=== PATIENT | male | born 1965 | race Caucasian/White ===

== ENCOUNTER 2020-05-14 12:04 | Outpatient (CLI) | payer MEDICARE, SELFPAY ==
--- NOTE | 2020-05-14 12:11 | XR_ITS ---
WS: [id number] LEFT RIBS, MULTIPLE VIEWS HISTORY: RIB FRACTURE, LEFT RIB PAIN COMPARISON: 12/24/2017 Ribs: Plate and screw fixation of several contiguous lateral ribs in the LEFT thorax at the fourth, f ifth, sixth, seventh and eighth ribs. There are additional healed fractures posteriorly from the fift h through the 12th rib. These are healed. Additional nonfixated fractures involving the lateral secon d and third ribs which are also probably old. Lungs and mediastinum: Visualized lung is clear. No pneumothorax. XR/XR ribs LT 2V* [id number] IMPRESSION: Numerous posterior lateral LEFT rib fractures as described above. Some of these rib fractures are fixated with plate and screws. No acute fracture.
== END 2020-05-14 12:05 | disposition home or self-care (01) ==
PROVIDERS: Family Provider Electrodiagnostic Medicine; PCP Electrodiagnostic Medicine; Visit Provider Electrodiagnostic Medicine
DX: S22.42XA Multiple fractures of ribs, left side, initial encounter for closed fracture (principal); X58.XXXA Exposure to other specified factors, initial encounter
CPT/HCPCS: 71100

== ENCOUNTER 2020-08-19 11:42 | Outpatient (CLI) | payer MEDICARE, SELFPAY | END 2020-08-19 11:43 | disposition home or self-care (01) | LOC: SPT 11:43 | PROVIDERS: Family Provider Electrodiagnostic Medicine; PCP Electrodiagnostic Medicine; Visit Provider Podiatrist Foot & Ankle Surgery | DX: Z46.89 Encounter for fitting and adjustment of other specified devices (principal); M76.61 Achilles tendinitis, right leg | CPT/HCPCS: 97760; L3030 ==

== ENCOUNTER 2021-02-18 11:17 | Outpatient (CLI) | payer OTHER, SELFPAY ==
--- NOTE | 2021-02-18 11:33 | XR_ITS ---
WS: [id number] Left shoulder, 2 views, 02/18/2021 Clinical Data: L SHOULDER PAIN Comparison: None. Findings: No new fractures or dislocations are seen. The AC joint is normal. There is an old left scapular inju ry. There are old left rib fractures from the second through eighth ribs. Surgical repair of the ribs 5 through 8 has been performed. XR/XR shoulder LT min 2V* [id number] Impression: 1. Negative left shoulder. 2. Old injuries to the left scapula and left lateral ribs.
--- NOTE | 2021-02-18 11:33 | XR_ITS ---
WS: [id number] Lumbar spine, 3 views, 02/18/2021 Clinical Data: BACK PAIN Comparison: None. Findings: No compression fractures or subluxation is seen. There is disc space narrowing at L3-L4 and L5-S1. Os teoarthritic spurring is present from L1 through L5. The transverse processes and SI joints are kandi l. There is a small metal fragment overlying the left ilium. XR/XR lumbar spine 2-3V* [id number] Impression: 1. Osteoarthritis L1-L5. 2. Degenerative disc narrowing at L3-L4 and L5-S1.
== END 2021-02-18 11:18 | disposition home or self-care (01) ==
LOC: RAD 11:23
PROVIDERS: PCP Electrodiagnostic Medicine; Visit Provider Dermatology
DX: M54.5 Low back pain (principal); M25.512 Pain in left shoulder; M47.816 Spondylosis without myelopathy or radiculopathy, lumbar region
CPT/HCPCS: 72100; 73030

== ENCOUNTER 2021-03-30 11:28 | Outpatient (CLI) | payer OTHER, SELFPAY ==
--- NOTE | 2021-03-30 11:34 | XR_ITS ---
WS: [id number] KNEE LEFT TECHNIQUE: 2 views of the left knee CLINICAL INFORMATION: KNEE PAIN DECREASED ROM COMPARISON: None. FINDINGS: Normal anatomic alignment. No acute fractures. Mild degenerative narrowing medial joint compartment. Mild degenerative narrowing at the patellofemoral articulation. Small suprapatellar effusion. Lateral compartment is well preserved. XR/XR knee LT 1-2V [id number] IMPRESSION: Mild degenerative narrowing medial joint compartment and patellofemoral articul ation. Kellgren-Nilesh Classification: grade 2 (minimal): definite osteophytes and p ossible joint space narrowing
--- NOTE | 2021-03-30 11:34 | XR_ITS ---
WS: [id number] KNEE RIGHT TECHNIQUE: 2 views of the right knee CLINICAL INFORMATION: KNEE PAIN DECREASED ROM COMPARISON: None. FINDINGS: Osteopenia. Advanced degenerative arthritis right knee with medial and lateral compartment narrowing and near [id number] articulation. Mild hypertrophic changes along the joint line. Advanced narrowin g patellofemoral articulation. Small suprapatellar effusion. Sclerosis in the distal femoral diaphysi s suspicious for prior bony infarcts versus benign enchondromas. XR/XR knee RT 1-2V 29325 IMPRESSION: 1. Advanced tricompartmental arthritis right knee Kellgren-Nilesh Classification: grade 4 (severe): large osteophytes, marked n arrowing of joint space, severe sclerosis and definite deformity of bone ends
== END 2021-03-30 11:29 | disposition home or self-care (01) ==
LOC: RAD 11:32
PROVIDERS: PCP Electrodiagnostic Medicine; Visit Provider Dermatology
DX: M25.562 Pain in left knee (principal); M25.561 Pain in right knee; M13.861 Other specified arthritis, right knee
CPT/HCPCS: 73560

== ENCOUNTER 2021-06-10 13:22 | Outpatient (CLI) | payer MEDICARE, SELFPAY ==
--- NOTE | 2021-06-10 13:35 | XR_ITS ---
WS: [id number] Right hip, AP and frog-leg views, 06/10/2021 Clinical Data: R HIP PAIN Comparison: None. Findings: No hip fractures are seen. There is a small right acetabular lip. The right SI joint and pubic symphy sis are normal. There is an old fracture and deformity of the left inferior ischiopubic ramus. The soft tissues are normal. The bladder is partly full. XR/XR hip RT 2-3V wo/w pel* [id number] Impression: 1. Small acetabular lip of the right hip. 2. Old fracture and deformity of the left inferior ischiopubic ramus. Tonnis classification: grade 1: sclerosis of femoral head and acetabulum or sli ght joint space narrowing or slight lipping at joint margins
== END 2021-06-10 13:23 | disposition home or self-care (01) ==
LOC: RAD 13:29
PROVIDERS: PCP Electrodiagnostic Medicine; Visit Provider Electrodiagnostic Medicine
DX: M25.551 Pain in right hip (principal)
CPT/HCPCS: 73502

== ENCOUNTER 2023-09-16 07:37 | Emergency (ER) | payer MEDICARE, SELFPAY ==
[2023-09-16 07:43] VITALS: BP 169/110; PULSE 103; RESP 18; TEMP 36.6; O2SAT 94; BMI 32.1
--- NOTE | 2023-09-16 07:44 | ECG_ITS ---
[facility] Test Date: 2023-09-16 Pat Name: Byron Medina Department: Room: Gender: Male Plumber: : 1965 Requested By: Noel Bennett Order Number: [id number] Jo MD: Justin Tomas M.D. Measurements Intervals [place] Rate: 99 P: 64 [place]: 168 QRS: -29 QRSD: 102 T: 62 QT: 353 QTc: 455 Interpretive Statements SINUS RHYTHM BORDERLINE LEFT AXIS DEVIATION [QRS AXIS < -20] No previous ECG available for comparison Electronically Signed On 09-16-2023 14:55:56 PINION POLISHER by Justin Tomas M.D. [email or web address].ID [email or web address]/store/NU/[id number] f
[2023-09-16 07:49] VITALS: BP 142/121; PULSE 99; RESP 18; O2SAT 93
--- NOTE | 2023-09-16 07:51 | XRR_ITS ---
PROCEDURE INFORMATION: Exam: XR Chest Exam date and time: 09/16/2023 8:25 AM Age: 58 years old Clinical indication: Dyspnea and shortness of breath TECHNIQUE: Imaging protocol: Radiologic exam of the chest. Views: 1 view. COMPARISON: CR XR chest 1V [id number] 12/24/2017 1:30 AM FINDINGS: Lungs: Unremarkable. No consolidation. Pleural spaces: Unremarkable. No pleural effusion. No pneumothorax. Heart/Mediastinum: Unremarkable. No cardiomegaly. Bones/joints: Multiple internally fixed fractures of the left lateral ribcage stabilized by cortical plates. No acute bony abnormalities. XR/XR chest 1V portable [id number] IMPRESSION: No active disease.
[2023-09-16 08:14] LABS: Basophils # 0.1 10^3/uL (0.0-0.1); Eosinophils # 0.3 10^3/uL (0.0-0.8); Eosinophils % 3.1 %; Hematocrit 48.2 % (37-53); Lymphocytes # 3.9 10^3/uL (0.8-4.8); Lymphocytes % 42.4 %; Mean Corpuscular HGB Conc 32.6 g/dL (30-55); Mean Corpuscular Hemoglobin 30.1 pg (27-33); Mean Corpuscular Volume 92.3 fl (82-101); Mean Platelet Volume 9.8 fL (7.4-10.4); Monocytes # 0.6 10^3/uL (0.2-0.9); Monocytes % 6.6 %; Neutrophils # 4.29 10^3/uL (1.8-7.7); Neutrophils % 46.7 %; Nucleated Red Blood Cells % 0 %; Platelet Count 446 10^3/cmm (157-399); Red Blood Count 5.22 10^6/uL (3.85-5.65); Red Cell Distribution Width 13.6 % (12.1-15.1); White Blood Count 9.16 10^3/uL (3.29-11.43)
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
[2023-09-16 08:37] LABS: D Dimer 0.32 ug/mLFEU (0-0.59)
[2023-09-16 08:40] LABS: Troponin(5th) Baseline 9 ng/L (0-15)
[2023-09-16 08:49] LABS: Alanine Aminotransferase 40 U/L (0-41); Albumin Level 4.2 g/dL (3.5-5.2); Alkaline Phosphatase 90 U/L (40-130); Anion Gap 13.5 (5-19); Aspartate Amino Transferase 28 U/L (0-40); Blood Urea Nitrogen 21 mg/dL (6-20); Calcium 9.9 mg/dL (8.5-10.5); Carbon Dioxide 27 mmol/L (22-29); Chloride 104 mmol/L (98-107); Globulin 2.7 g/dL (1.3-4.6); Glomerular Filtration Rate 57.1 mL/min (90-130); Glucose 204 mg/dL (65-115); NT Pro B Type Natriuretic Pept < 36 pg/mL (0-125); Osmolality Calculated 299 mOsm/kg (285-295); Potassium 4.5 mmol/L (3.5-5.1); Sodium 140 mmol/L (136-145); Total Bilirubin 0.4 mg/dL (0.15-1.2); Total Protein 6.9 g/dL (6.6-8.7)
[2023-09-16 09:15] LABS: SARS Covid-2 Antigen negative (Negative)
[2023-09-16 09:16] LABS: Influenza A by IFA negative (Negative); Influenza B by IFA negative (Negative)
--- NOTE | 2023-09-16 09:51 | ECG_ITS ---
[facility] Test Date: 2023-09-16 Pat Name: Byron Medina Department: Room: Gender: Male Hand Sizer: : 1965 Requested By: Noel Bennett Order Number: [id number] Jo MD: Justin Tomas M.D. Measurements Intervals [place] Rate: 81 P: 52 [place]: 190 QRS: -5 QRSD: 100 T: 46 QT: 373 QTc: 435 Interpretive Statements SINUS RHYTHM Compared to ECG 09/16/2023 07:44:26 No significant changes Electronically Signed On 09-16-2023 15:40:19 SEED LABORATORY ASSISTANT by Justin Tomas M.D. [id number]
[2023-09-16 10:40] LABS: Troponin 5 2HR 6.36 ng/L (0-15)
[2023-09-16 10:41] VITALS: BP 159/110; PULSE 92; RESP 18; O2SAT 96
[2023-09-16 10:44] LABS: Troponin 5 2HR Delta -2.64 ABS# (0-10)
[2023-09-16 11:14] VITALS: BP 159/110
== END 2023-09-16 11:15 | disposition home or self-care (01) ==
PROVIDERS: Emergency Provider Emergency Medicine; PCP Electrodiagnostic Medicine
DX: R06.02 Shortness of breath (principal); I10 Essential (primary) hypertension; Z11.52 Encounter for screening for COVID-19; Z86.73 Personal history of transient ischemic attack (TIA), and cerebral infarction without residual deficits
CPT/HCPCS: 36415; 71045; 80053; 83880; 84484; 85025; 85378; 87426; 87804; 93005; 99285